=== PATIENT | female | born 2000 | race Caucasian/White ===

== ENCOUNTER 2024-04-02 12:32 | Emergency (ER) | payer BC, SELFPAY ==
[2024-04-02 12:43] VITALS: BP 127/87
[2024-04-02 13:30] LABS: HCG, Serum Qualitative Screen Negative
[2024-04-02 13:41] LABS: % Basophils 0.4 % (0-2); % Eosinophils 0.4 % (0-6); % Immature Granulocytes 0.1 % (0-0.5); % Lymphocytes 23.6 % (20.5-51.1); % Monocytes 7.1 % (1.7-9.3); % Neutrophils 68.4 % (42.2-75.2); Absolute Lymphocytes 1.9 10^3/uL (1.2-3.4); Absolute Monocytes 0.6 10^3/uL (0.1-0.6); Absolute Neutrophils 5.4 10^3/uL (1.4-6.5); Hematocrit 43.3 % (37.0-47.0); Hemoglobin 14.9 g/dL (12.0-16.0); Mean Corp Hgb Conc. 34.4 g/dL (33.0-37.0); Mean Corpuscular Hgb 30.7 pg (27.0-31.0); Mean Corpuscular Volume 89.1 fL (81.0-99.0); Mean Platelet Volume 9.8 fL (7.4-10.4); Nucleated Red Blood Cells % 0 %; Platelet Count 294 10^3/uL (130-400); Red Blood Cell Count 4.86 10^6/uL (4.20-5.40); White Blood Cell Count 7.9 10^3/uL (4.8-10.8)
[2024-04-02 13:43] LABS: ALT (SGPT) 21 U/L (0-35); AST (SGOT) 23 U/L (14-36); Alkaline Phosphatase 88 U/L (38-126); Blood Urea Nitrogen 10 mg/dl (7-17); Calcium 9.4 mg/dl (8.4-10.2); Carbon Dioxide 23 mmol/L (22-30); Chloride 104 mmol/L (98-107); Glucose 88 mg/dl (70-99); Lipase 69 U/L (23-300); Potassium 4.1 mmol/L (3.5-5.1); Sodium 139 mmol/L (135-145); Total Bilirubin 0.7 mg/dl (0.2-1.3); Total Protein 7.5 g/dl (6.3-8.2); eGFR > 60.00
--- NOTE | 2024-04-02 14:52 | ED.GENMED ---
History of Present Illness
<Silvia Montano, BIN PACKER - Last Filed: 04/03/24 14:33>
General
Chief Complaint: Abdominal Symptoms
Source: patient
Exam Limitations: none
Time Seen by Provider: 04/02/24 13:51
Nursing documentation reviewed up to this point in time: agreed with
History of Present Illness
History of Present Illness:
23-year-old female with history of Crohn's diagnosed last year, followed by Johnseamus Jalloh. She was on Humira but 1 week ago it was changed to Amjevita due to her insurance and she thinks the generic medications do not work for her. She states she
has had abdominal pain for the past 2 days with loose to watery stools and some blood in her stools. Denies fever/chills, denies n/v. Pain is minimal now, was 4-5/10 in R lower back yesterday
Past History
<Silvia Montano, BIN PACKER - Last Filed: 04/03/24 14:33>
Past History
ED Past Medical History: Other (Crohn's disease)
ED Past Surgical History: None
Social History
Tobacco: Non-smoker
Alcohol: Occasional
Personal: Single
Review of Systems
<Silvia Montano, BIN PACKER - Last Filed: 04/03/24 14:33>
Review of Systems
Allergies reviewed?: Yes
All Other Systems: ROS reviewed and negative except as documented in HPI and ROS
Constitutional: Reports fatigue; Denies fever or chills
Respiratory: Denies trouble breathing
Cardiac: Denies chest pain
ABD/GI: Reports abdominal pain and bloody stools; Denies nausea or vomiting
: Denies dysuria or difficulty voiding
Musculoskeletal: Reports no symptoms
Skin: Reports no symptoms
Neurological: Reports no symptoms
Phy Exam
<Silvia Montano, BIN PACKER - Last Filed: 04/03/24 14:33>
Physical Exam
Physical Exam:
GENERAL: No acute distress. A&Ox3.
CONSTITUTIONAL: Afebrile.
EYES: clear, conjunctivae normal
ENMT: moist mucus membranes
RESPIRATORY: Regular respirations, nonlabored, lungs clear.
CARDIOVASCULAR: Regular rate and rhythm, no murmurs, no rubs.
GI: Soft, mild tenderness both sides mid to lower abdomen, normal BS
MUSCULOSKELETAL: Moves with ease. Well perfused.
SKIN: Warm, dry, pink
PSYCH: Normal mood and affect. Well kept, interactive and appropriate
NEUROLOGIC: Awake, alert and oriented. No focal neurological deficits
Course
<Silvia Montano BIN PACKER - Last Filed: 04/03/24 14:33>
Orders/Labs/Results
Orders:
Orders
04/02/24 12:47
Test Result ONCE
04/02/24 13:00
Comprehensive Metabolic Panel Urgent
HCG, Serum Qualitative Screen Urgent
Lipase Urgent
04/02/24 13:24
Complete Blood Count/With Diff Urgent
04/02/24 14:48
CT Abd/pel W Iv And Oral Contr Urgent
Comment:
Reason For Exam: abd pain, thinks Crohn's flare
Iohexol [Omnipaque] See Protocol PO NOW STA
04/02/24 14:50
0.9% Sodium Chloride 1000 ml [Nss] 1,000 ml IV BOLUS
Ondansetron Orally Disint [Zofran Odt (Orally Disintegrating)] 4 mg PO NOW STA
04/02/24 13:24
04/02/24 13:00
Vital Signs
Initial and Last Documented VS:
Initial Vital Signs
Temp Pulse Resp BP Pulse Ox
98.6 F 87 16 127/87 99
04/02/24 12:43 04/02/24 12:43 04/02/24 12:43 04/02/24 12:43 04/02/24 12:43
Last Documented Vital Signs
Temp Pulse Resp BP Pulse Ox
98.6 F 88 18 130/86 99
04/02/24 12:43 04/02/24 19:17 04/02/24 19:17 04/02/24 19:17 04/02/24 19:17
<Toni Monique PA-C - Last Filed: 04/02/24 19:10>
Orders/Labs/Results
Orders:
Orders
04/02/24 12:47
Test Result ONCE
04/02/24 13:00
Comprehensive Metabolic Panel Urgent
HCG, Serum Qualitative Screen Urgent
Lipase Urgent
04/02/24 13:24
Complete Blood Count/With Diff Urgent
04/02/24 14:48
CT Abd/pel W Iv And Oral Contr Urgent
Comment:
Reason For Exam: abd pain, thinks Crohn's flare
Iohexol [Omnipaque] See Protocol PO NOW STA
04/02/24 14:50
0.9% Sodium Chloride 1000 ml [Nss] 1,000 ml IV BOLUS
Ondansetron Orally Disint [Zofran Odt (Orally Disintegrating)] 4 mg PO NOW STA
04/02/24 13:24
04/02/24 13:00
Vital Signs
Initial and Last Documented VS:
Initial Vital Signs
Temp Pulse Resp BP Pulse Ox
98.6 F 87 16 127/87 99
04/02/24 12:43 04/02/24 12:43 04/02/24 12:43 04/02/24 12:43 04/02/24 12:43
Last Documented Vital Signs
Temp Pulse Resp BP Pulse Ox
98.6 F 88 18 130/86 99
04/02/24 12:43 04/02/24 19:17 04/02/24 19:17 04/02/24 19:17 04/02/24 19:17
<Silvia Montano BIN PACKER - Last Filed: 04/03/24 14:33>
MDM/Problems Addressed
Differential Diagnosis Includes:
Crohn's flare, diverticulitis
MDM/Problems Addressed:
23-year-old female with history of Crohn's diagnosed last year, followed by John Jalloh. She was on Humira but 1 week ago it was changed to Amjevita Pen inj. q 2 weeks, due to her insurance and she thinks the generic medications do not work for
her. Last dose 9 days ago. She states she has had abdominal pain for the past 2 days with loose to watery stools and some blood in her stools. Denies fever/chills, denies n/v. Pain is minimal now, was 4-5/10 in R lower back yesterday
Afebrile, NAD
Chronic conditions affecting care:
Crohn's disease
<Toni Monique PA-C - Last Filed: 04/02/24 19:10>
*Critical Care Note
Total Time (30-74mins, 75-104mins- exclusive of procedures): Not Applicable
<Toni Monqiue PA-C - Last Filed: 04/02/24 19:10>
Update Note
Update Note:
Assumed care of patient pending CT scan of abdomen. Reviewed CT. There is mild thickening of the distal sigmoid and superior rectum to suggest proctocolitis versus malabsorption or diarrheal illness. Patient examined. Appears benign. Labs
within normal limits. Recommend follow up with GI
ED Attending Note
<Silvia Montano BIN PACKER - Last Filed: 04/03/24 14:33>
-
Portions of this chart may have been created with voice recognition software.� Occasional wrong word or��sound alike� substitutions may have occurred due to the inherent limitations of voice recognition software.
Discharge Plan
Departure
Patient Disposition: Home (Routine Discharge)
Date of Disposition: 04/02/24
Time of Disposition: 19:09
Patient with high blood pressure during this ER visit?: No
Discharge Problem:
Abdominal pain
Instructions: Abdominal Pain
Referrals:
Tenthoff,Breanna Gorman MD [Family Provider] -
Stand Alone Forms: Return to Work
Activity Restrictions/Additional Instructions:
Please follow-up with your GI team to consider readjusting medications. Please return here for worsening symptoms otherwise
Interventions
Interventions:
*Risk Screen - Suicide Last Done: 04/02/24 19:17
*General Assessment Last Done: 04/02/24 19:16
*Neglect/Abuse Screening Last Done: 04/02/24 19:16
*ED COVID-19 Vaccine History Last Done: 04/02/24 19:16
*Nursing Disposition Last Done: 04/02/24 19:17
TD-Gjtcaf-Qpzaofozqh Assessment Last Done: 04/02/24 15:22
Discharge Date and Time
Discharge Date/Time: 04/02/24 19:19
Print Language: PORTUGUESE
[2024-04-02] MEDS: OMNIPAQUE 50 ML PO (15:14)
[2024-04-02] MEDS: ZOFRAN ODT (ORALLY DISINTEGRATING) 4 MG PO (15:15)
[2024-04-02] MEDS: NSS 1000 IV (15:21)
[2024-04-02 19:17] VITALS: BP 130/86
== END 2024-04-02 19:19 | disposition home or self-care (01) ==
LOC: EMR 12:32
PROVIDERS: Emergency Medicine; EMERGENCY PHYSICIAN Student in an Organized Health Care Education/Training Program; FAMILY PHYSICIAN Family Medicine
DX: R10.9 Unspecified abdominal pain (principal); M54.50 Low back pain, unspecified; K50.90 Crohn's disease, unspecified, without complications; Z79.899 Other long term (current) drug therapy
CPT/HCPCS: 96360; 99284; 74177; 80053; 83690; 84703; 85025; Q9967